=== PATIENT | male | born 1960 | race Caucasian/White ===

== ENCOUNTER 2022-01-14 09:45 | Emergency (ER) | payer BC, SELFPAY ==
--- NOTE | 2022-01-14 10:40 | EXP.UTC ---
Discharge Plan Disposition Patient Disposition: Home, Self-Care Condition: Good Prescriptions Prescriptions: New azithromycin [Zithromax Z-Ramirez] 250 mg tablet See Rx Instructions .ROUTE .COMPLEX Qty: 6 0RF Rx Instructions: For 250 mg dose pack: take 500 mg today (day 1), then 250 mg for 4 days (days 2-5) methylprednisolone [Medrol (Ramirez)] 4 mg tablets,dose pack See Rx Instructions .Route .COMPLEX 6 Days Qty: 21 0RF Rx Instructions: taper pack; benzonatate 100 mg capsule 100 mg PO TID PRN (Reason: cough) Qty: 30 0RF Referrals Follow up/Referrals: Provider,Referral, MD [Primary Care Provider] - See instructions Activity Restrictions/Add. Instructions Additional Instructions/Restrictions: *Monitor Temp, Over the counter Motrin or Tylenol as directed/as needed Tylenol every 4 hours and Motrin every 6 hours (as long as your family doctor has told you that you can take it) for fever or pain. and straight to ER if unable to lower temp less than 101.0 after medication given *Warm salt water gargles may help to soothe the throat *Throat Lozenges? *Warm fluids like tea with honey may help to soothe the throat? *Sleep elevated *Humidifier/Vaporizer Follow up IMMEDIATELY for new or worsening symptoms or no Noticeable improvement over the next 48-72 hours. 911 for difficulty breathing or swallowing Clinical Impressions Clinical Impression: Sinusitis Instructions Patient Instructions: DI for Sinusitis Discharge ED Provider: Terra Zavala [facility] General Stated complaint: Drainage, sneezing, possible allergies Time Seen by Provider: 01/14/22 10:40 History of Present Illness Provider Complaint: Patient states that has been having sinus congestion and drainage, cough and feels like it is trying to move into his chest States that he feels like it started out like allergies but has got worse so today he came in to get checked out Related Data Previous Rx's Medication Instructions Recorded azithromycin 250 mg tablet See Rx Instructions PO .COMPLEX #6 01/14/22 (Zithromax Z-Ramirez) tabs benzonatate 100 mg capsule 100 mg PO TID PRN cough #30 caps 09/16/22 methylprednisolone 4 mg tablets in See Rx Instructions .Route 01/14/22 a dose pack (Medrol (Ramirez)) .COMPLEX 6 days #21 tabs Allergies Allergy/AdvReac Type Severity Reaction Status Date / Time No Known Allergies Allergy Verified 01/14/22 10:49 PFSH PFSH Social History Smoking Status: Unknown if ever smoked alcohol intake: never current occupational status: other Travel in the last 8 weeks: None ROS Obtained: Yes All systems reviewed & no additional complaints except as documented and Yes Systems reviewed as appropriate & no additional complaints except as documented Constitutional Constitutional: Reports system reviewed and no additional complaints, except as documented and Reports as per HPI ENT Ears, Nose, Mouth, and Throat: Reports system reviewed and no additional complaints, except as documented, Reports as per HPI, Reports sinus pain, Reports sinus pressure and Reports sore throat Cardiovascular Cardiovascular: Reports system reviewed and no additional complaints, except as documented and Reports as per HPI Respiratory Respiratory: Reports system reviewed and no additional complaints, except as documented, Reports as per HPI and Reports cough Gastrointestinal Gastrointestingal: Reports system reviewed and no additional complaints, except as documented and as per HPI Genitourinary Male Genitourinary: Reports system reviewed and no additional complaints, except as documented and Reports as per HPI Physical Exam General General appearance: alert and in no apparent distress Expanded ENT Exam Nose exam: Present sinus tenderness Throat exam: Present other (pharyngeal erythema noted with PND) Respiratory Respiratory exam: Present normal lung sounds bilaterally; Absent respiratory distress or whe
[2022-01-14 10:49] VITALS: BP 141/92; PULSE 92; RESP 19; TEMP 36.9; O2SAT 99; BMI 27.9
[2022-01-14 11:11] VITALS: BP 141/92; PULSE 92; RESP 19; TEMP 36.9; O2SAT 99
== END 2022-01-14 11:13 | disposition home or self-care (01) ==
PROVIDERS: Emergency Provider Nurse Practitioner
DX: J32.9 Chronic sinusitis, unspecified (principal)
CPT/HCPCS: 99212; G0463

== ENCOUNTER 2022-04-05 10:16 | Emergency (ER) | payer BC, SELFPAY ==
[2022-04-05 11:00] VITALS: BP 155/109; PULSE 82; RESP 18; TEMP 36.7; O2SAT 98; BMI 28.7
--- NOTE | 2022-04-05 11:56 | EXP.UTC ---
Discharge Plan Disposition Patient Disposition: Home, Self-Care Condition: Good Prescriptions Prescriptions: No Action aripiprazole 5 mg tablet 5 mg PO DAILY Label Comments: TAKE 1 TABLET BY MOUTH EVERY MORNING duloxetine 60 mg capsule,delayed release(DR/EC) 60 mg PO DAILY Label Comments: TAKE 1 CAPSULE BY MOUTH EVERY MORNING Referrals Follow up/Referrals: Eduardo Balderas MD [Primary Care Provider] - See instructions Activity Restrictions/Add. Instructions Additional Instructions/Restrictions: Make sure to follow up with your Family Doctor if your COVID and Flu test is negative and you are still feeling bad Follow up with your Family Doctor for recheck of your blood pressure and further treatment if needed Return if needed Straight to ER if any life threatening symptoms *Monitor Temp, Over the counter Motrin or Tylenol as directed/as needed Tylenol every 4 hours and Motrin every 6 hours (as long as your family doctor has told you that you can take it) for fever or pain. and straight to ER if unable to lower temp less than 101.0 after medication given *Warm salt water gargles may help to soothe the throat *Throat Lozenges? *Warm fluids like tea with honey may help to soothe the throat? *Sleep elevated *Humidifier/Vaporizer Follow up IMMEDIATELY for new or worsening symptoms or no Noticeable improvement over the next 48-72 hours. 911 for difficulty breathing or swallowing You were tested for today for Upper Respiratory Panel with COVID19 your test result should be back in the next 24-48 hours, you may check your results on the [facility] Clinical Impressions Clinical Impression: Viral syndrome Stand Alone Forms Stand Alone Forms: Work/School Release Instructions Patient Instructions: DI for Influenza -- Adult, DI for Fever (Symptom) -- Adult, Coronavirus Disease 2019 Discharge ED Provider: Terra Zavala [facility] [place] General Stated complaint: chest congestion, runny nose Mode of Arrival: Ambulatory Source of Information: Patient Limitations: No Limitations Time Seen by Provider: 04/05/22 11:56 Description of Symptoms (Recalled from Triage Doc. by RN): PATIENT C/O FEELING TIRED, SOA, AND FEELING HOT/COLD X 2 WEEKS HEENT Symptoms (Recalled from RN notes): No Resp Symptoms (Recalled from RN notes): No Skin Symptoms (Recalled from RN notes): No MS Symptoms (Recalled from RN notes): No Functional Status (Recalled from RN notes): WNL History of Present Illness Provider Complaint: Patient states that he started about 2 weeks ago with runny nose States that since then he has been feeling achy all over, continued to have runny nose and worried about flu and COVID wanting to get tested States that he has been feeling hot and cold like he may have a fever and felt like he was starting to get congested in his chest and today he was feeling tired and achy so he came in Related Data Home Medications Medication Instructions Recorded Confirmed aripiprazole 5 mg tablet 5 mg PO DAILY Anxiety 04/05/22 04/05/22 duloxetine 60 mg capsule,delayed 60 mg PO DAILY Depression 04/05/22 04/05/22 release Allergies Allergy/AdvReac Type Severity Reaction Status Date / Time No Known Allergies Allergy Verified 01/14/22 10:49 Worker's Comp Is this a Worker's Comp case?: No [facility] Disclaimer: The information contained in this section may have been updated after the patient was seen, as this information can be updated by other users. Medical History (Updated 04/05/22 @ 12:22 by Terra Zavala APRN) Anxiety Cancer Depression Surgical History (Updated 04/05/22 @ 11:18 by Anitha Bowen RN) History of appendectomy Social History (Updated 04/05/22 @ 11:18 by Anitha Bowen RN) Smoking Status: Unknown if ever smoked alcohol intake: never current occupational status: other Travel in the last 8 weeks: None ROS Obtained: Yes All syst
[2022-04-05 12:24] VITALS: BP 135/97; PULSE 82; RESP 18; TEMP 36.7; O2SAT 98
[2022-04-05 12:33] LABS: Coronavirus 19, PCR Not Detected (NotDetected); Influenza A, PCR Not Detected (NotDetected); Influenza B, PCR Not Detected (NotDetected)
== END 2022-04-05 12:32 | disposition home or self-care (01) ==
PROVIDERS: Emergency Provider Nurse Practitioner; PCP Internal Medicine Adolescent Medicine
DX: B34.9 Viral infection, unspecified (principal)
CPT/HCPCS: 99212; C9803; G0463; U0003; U0005

== ENCOUNTER 2022-05-18 12:01 | Day surgery (SDC) | payer BC, SELFPAY ==
[2022-05-11 10:45] VITALS: BMI 28.7
[2022-05-18] VITALS (7 sets, daily range): BP systolic 114–144; BP diastolic 67–99; PULSE 70–102; RESP 16–18; TEMP 36.1; O2SAT 91–99
--- NOTE | 2022-05-18 09:52 | P.PN_ITS ---
[facility] Disclaimer: The information contained in this section may have been updated after the patient was seen, as this information can be updated by other users. Medical History Anxiety Cancer Depression Surgical History History of appendectomy History of colon resection History of colostomy reversal Hx of knee surgery Hx of vasectomy Family History Other No significant family history Social History Smoking Status: Unknown if ever smoked alcohol intake: current substance use type: denies use current occupational status: other Travel in the last 8 weeks: None household members: none housing: house lives independently: Yes marital status: single education level: high school caffeine: Yes special clair needs: No agree to transfusion: No do you feel safe at home: Yes victim of physical abuse: No victim of emotional abuse: No victim of sexual abuse: No would you like helpful sources: No [facility] Anesthesia Checklist Patient Identification Patient Identification: Arm Band and Verbal (Name & ) Structural Data Admitted From: Home Planned Operative Procedure/s: Colonoscopy Consent for Planned Operative Procedure(s) Verified: Yes NPO Status Verified Time NPO: 00:00 Airway Assessment C-Spine Mobility Assessed: Yes TMJ Mobility Assessed: Yes Dentition: Good Dentition Neurological Assessment Level of Consciousness: Awake Hx Seizures: No Numbness or tingling in extremities: No Anesthesia Plan Anesthesia Risk discussed: Yes Anesthesia Plan: Verified ASA Class: II Anesthesia Type: MAC
--- NOTE | 2022-05-18 13:15 | EXP.ANES.CKL ---
[facility] Disclaimer: The information contained in this section may have been updated after the patient was seen, as this information can be updated by other users. Medical History Anxiety Cancer Depression Surgical History History of appendectomy History of colon resection History of colostomy reversal Hx of knee surgery Hx of vasectomy Family History Other No significant family history Social History Smoking Status: Unknown if ever smoked alcohol intake: current substance use type: denies use current occupational status: other Travel in the last 8 weeks: None household members: none housing: house lives independently: Yes marital status: single education level: high school caffeine: Yes special clair needs: No agree to transfusion: No do you feel safe at home: Yes victim of physical abuse: No victim of emotional abuse: No victim of sexual abuse: No would you like helpful sources: No [facility] Anesthesia Checklist Patient Identification Patient Identification: Arm Band and Verbal (Name & ) Structural Data Admitted From: Home Planned Operative Procedure/s: Colonoscopy Consent for Planned Operative Procedure(s) Verified: Yes NPO Status Verified Time NPO: 00:00 Airway Assessment C-Spine Mobility Assessed: Yes TMJ Mobility Assessed: Yes Dentition: Good Dentition Neurological Assessment Level of Consciousness: Awake Hx Seizures: No Numbness or tingling in extremities: No Anesthesia Plan Anesthesia Risk discussed: Yes Anesthesia Plan: Verified ASA Class: II Anesthesia Type: MAC
--- NOTE | 2022-05-18 13:42 | HMH.SCOPE ---
Procedure: Date: 05/18/22 Patient Date of :: 1960 Procedure Performed:: Colonoscopy Indications:: The patient is a 61 year old who presents for colonoscopy for history of colon cancer in 2011 Performing Provider:: Jackson Rodrigues MD Referring Provider:: Eduardo Balderas MD Sedation:: See RN notes Procedure:: After placing the patient in the left lateral decubitus position, the colonoscopy was gently inserted into the rectum and under direct visualization advanced to the cecum which was identified by transillumination in the right lower quadrant, identification of the ileocecal valve, appendiceal orifice, and cecal strap. Color, texture, mucosa, and anatomy of the colon were carefully examined with the scope. Findings:: Anal canal: normal Rectum: normal Sigmoid colon: resected Descending colon: normal without polyps or inflammatory changes Splenic flexure: normal Transverse colon: normal without polyps or inflammatory changes Hepatic flexure: normal Ascending colon: normal without polyps or inflammatory changes Cecum: normal Terminal ileum: not visualized Impression: Normal appearing colon Recommendations:: Repeat colonoscopy in 5 years Complications:: none Estimated blood obtained (mL): 0
== END 2022-05-18 14:23 | disposition home or self-care (01) ==
PROVIDERS: PCP Internal Medicine Adolescent Medicine; Visit Provider Internal Medicine
PROC: 0DJD8ZZ Inspection of Lower Intestinal Tract, Via Natural or Artificial Opening Endoscopic (ICD-10-PCS; CPT 45378; principal; 2022-05-18 13:30)
DX: Z12.11 Encounter for screening for malignant neoplasm of colon (principal); Z85.038 Personal history of other malignant neoplasm of large intestine; Z90.49 Acquired absence of other specified parts of digestive tract
CPT/HCPCS: 45378; J2704